=== PATIENT | female | born 1945 | race Caucasian/White ===

== ENCOUNTER → 2017-05-13 | Outpatient (CLI) | payer OTHER ==
[~2017-05-13] MED LIST: ALBUAER19 INH; ASPI325T39 PO; ATV/1 SL; BENA1TAB19 PO; CHOLTAB3 PO; LEVO75TA PO; LINA1CAP; LOVA40TA4 PO; OMEG10007 PO; PARO1TAB29 PO; PARO30TA4 PO; POLY335019 PO; TRIA0.1O12; VERA240T20 PO; calcium PO
[2017-05-13 13:17] VITALS: BP 113/70; PULSE 67; TEMP 37.3; O2SAT 98
--- NOTE | 2017-05-13 16:21 | Radiation Oncology Follow-Up ---
Radiation Oncology Follow-Up Date of Visit May 13, 2017. 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 This is especially noted on the lateral aspect of the breast in the lower quadrants. She has noted no masses. She has noticed no swelling. She does have posttreatment changes of the skin. She has been using Aquaphor to help improve the skin dryness. At that time she will also use Neosporin. The pain she has in her breast she describes as generally constant. This can be up to level V. She takes Aleve on a regular basis. This is for her breast but she also has back issues. She has had chronic back pain for years. She stated that her family physician has discussed referring her to the pain clinic. She is up-to- date on mammography. She had a mammogram 04/10/2017. There was no evidence of malignancy. Normal interval follow-up was recommended in 12 months. BI-RADS Category 1. Allergies Coded Allergies: Sulfamethoxazole w/Trimethoprim (Unverified Adverse Reaction, Intermediate , increased BP, 07/14/14) Uncoded Allergies: augmenetin (Adverse Reaction, Intermediate, increased BP, 07/14/14) Home Medications Scheduled Albuterol Inhaler (Ventolin Inhaler), 2 PUFFS INH qidprn Aspirin (Aspirin Ec), 325 MG PO DAILY Benazepril (Lotensin), 40 MG PO DAILY Levothyroxine Sodium (Synthroid), 75 MCG PO DAILY Lorazepam (Ativan), 1 MG SL bidprn Lovastatin (Mevacor), 40 MG PO DAILY Paroxetine (Paxil), 1 TAB PO DAILY Verapamil Sust Rel (Calan Sr Ext Rel), 240 MG PO DAILY Scheduled PRN Linaclotide (Linzess), UD PRN for Constipation Review of Systems Gastrointestinal: Symptoms: Constipation GI Comments: chronic constipation Oral: Symptoms: No Problems Other Oral Symptoms: " chokes a lot " Respiratory: Symptoms: Dry Cough, SOB With Exertion Respiratory Comments: Usually uses inhaler after doing yard work Other Respiratory: " I have asthma " Urinary: Symptoms: Incontinence, Nocturia Comments: nocturia times 1 Skin: Symptoms: Dry Desquamation Other Skin Symptoms: "left breast incision is sl pink in center of it " Breast: Right Upper Arm Measurement: 32.0 Right Mid Arm Measurement: 24.8 Right Wrist Measurement: 16.0 Left Upper Arm Measurement: 33.0 Left Mid Arm Measurement: 25.0 Left Wrist Measurement: 16.3 Arm Dominence: Right Patient Cosmetic Evaluation: Poor Staff Cosmetic Evalaluation: Poor Physical Exam Vital Signs Date Time Temp Pulse Resp B/P (MAP) Pulse Ox O2 Delivery O2 Flow Rate FiO2 05/13/17 13:17 37.3 67 18 113/70 98 Pain: Pain Onset: "since radiation burn " Pain Duration: gets worse at times Side: Left Pain Location: None Patient Pain Scale: 0 - 10 Initial Pain Intensity: 2.0 Pain Description: Aching Additional Comments: and can have sharp pains at times Fatigue: None General Appearance: no apparent distress Eyes: normal inspection, EOMI ENT: normal ENT inspection, hearing grossly normal Neck: no adenopathy, thyroid normal Respiratory/Chest: lungs clear, no respiratory distress, no accessory muscle use Breast: Breast examination on the left reveals areas of hyper and hypopigmentation. This is noted of the lateral breast and in the lower quadrants. There is tenderness laterally. There are no masses. There is thinning of the skin along the lateral portion of the incision scar. There is no axillary adenopathy. Using the [place] score cosmesis she has a a poor outcome. On the right breast she has changes of hyper and hypopigmentation in the inframammary fold. There are no masses or tenderness no axillary adenopathy. Cardiovascular: regular rate, rhythm, no gallop, no murmur Extremities: no pedal edema Neurologic/Psychiatric: no motor/sensory deficits, alert, normal mood/affect Skin: warm/dry Additional Studies Mammography as reviewed above. Assessment & Plan Plan: Patient was also seen and examined by Dr. Silver. The chronic pain was reviewed. She continues on Aleve twice a day. She has been given Medrol Dosepaks previously in the past. This was given on 2 occasions. She does not recall if this helped with the issue of pain. We discussed with her an evaluation at the pain clinic. Because she has already been recommended to be seen due to back issues by her family physician, we've asked her to call Dr. Son's office and set up an appointment. She may receive treatment for her back and also left breast/lateral chest wall. We discussed that she may benefit from Lidoderm patches. We'll defer pain treatment to the pain clinic. We asked her to return to our office in 1 year. She may call if she has any questions or concerns in the interim. Total Time In Follow-Up I spent 25 minutes speaking to the patient and performing examination. I spent 15 minutes reviewing information in completing this note. Copy To Jeaneth Son M.D.
== END | disposition home or self-care (01) ==
LOC: C.ONC 13:04
PROVIDERS: ATTEND Physician Assistant Medical
DX: Z08 Encounter for follow-up examination after completed treatment for malignant neoplasm (principal); Z92.3 Personal history of irradiation; Z85.3 Personal history of malignant neoplasm of breast